=== PATIENT | male | born 1950 | race Caucasian/White ===

== ENCOUNTER 2017-09-10 10:19 | Outpatient (CLI) | payer MEDICARE | END 2017-09-10 10:20 | disposition home or self-care (01) | LOC: BICMRI 10:19 | PROVIDERS: ATTEND Orthopaedic Surgery | DX: M75.101 Unspecified rotator cuff tear or rupture of right shoulder, not specified as traumatic (principal); S43.401A Unspecified sprain of right shoulder joint, initial encounter; M19.011 Primary osteoarthritis, right shoulder ==

== ENCOUNTER 2017-09-17 13:51 | Outpatient (CLI) | payer MEDICARE, OTHER ==
[2017-09-17 15:27] LABS: #Basophils 0.1 thou/uL (0.0-0.2); #Eosinphils 0.2 thou/uL (0.0-0.7); #Lymphocytes 2.4 thou/uL (1.20-3.40); #Monocytes 0.8 thou/uL (0.11-0.59); #Neutrophils 3.6 thou/uL (1.40-6.50); %Basophils 1.3 % (0.0-1.0); %Eosinophils 2.5 % (0.0-10.0); %Monocytes 11.2 % (0.0-10.0); %Neutrophils 51.1 % (42.0-75.0); Hemoglobin 12.9 g/dL (14.0-18.0); Mean Corpuscular HGB CONC 33.5 g/dL (32.0-36.0); Mean Corpuscular Hemoglobin 31.5 pg (27.0-31.0); Mean Corpuscular Volume 93.9 fl (80.0-94.0); Mean Platelet Volume 7.6 fL (7.4-10.4); Platelet Count 218 thou/uL (130-400); RBC Distribution Width 11.7 % (11.5-14.5); Red Blood Cell (RBC) Count 4.08 mill/uL (4.70-6.10)
[2017-09-17 15:47] LABS: Anion Gap 8 mmol/L (10-20); BUN (Urea Nitrogen) 15 mg/dL (8.4-25.7); Calc. Creatinine Clearance 0 mL/min (70-130); Calcium 9.2 mg/dL (7.8-10.44); Carbon Dioxide 30 mmol/L (23-31); Chloride 104 mmol/L (98-107); Estimated GFR-MDRD 84; Glucose 99 mg/dL (80-115); Potassium 4.1 mmol/L (3.5-5.1); Sodium 138 mmol/L (136-145)
== END 2017-09-17 13:52 | disposition home or self-care (01) ==
LOC: LABBT 13:51
PROVIDERS: ATTEND Orthopaedic Surgery
DX: Z01.818 Encounter for other preprocedural examination (principal); M75.101 Unspecified rotator cuff tear or rupture of right shoulder, not specified as traumatic
CPT/HCPCS: 80048; 85025; 93005; 93010

== ENCOUNTER 2017-09-22 07:59 | Day surgery (SDC) | payer MEDICARE, OTHER ==
[2017-09-17 14:22] VITALS: BMI 34.4
[~2017-09-22 07:59] MED LIST: Dexamethasone 20 MG/5 ML VIAL ONE; Glycopyrrolate 0.2 MG/ML 5 ML SYRINGE ONE; Ketorolac Tromethamine 30 MG/ML VIAL ONE; Lidocaine 1% PF 5 ML VIAL ONE; Ondansetron HCl/PF 4 MG/2 ML Vial ONE; PROPOFOL 200 MG/20 ML VIAL ONE
[2017-09-22] MEDS ORDERED: CEFAZOLIN/Water 2 GM/20 ML SYRINGE ONE (08:08)
[2017-09-22] MEDS ORDERED: Fentanyl 100 MCG/2 ML VIAL ONE ×3 (08:34→12:49)
[2017-09-22] MEDS ORDERED: Ropivacaine 0.2% HCl/PF 20 ML ONE (08:42)
[2017-09-22] MEDS ORDERED: Midazolam HCl 2 mg/2 ml Vial ONE ×2 (08:42→08:57)
[2017-09-22] MEDS ORDERED: Ondansetron HCl/PF 4 MG/2 ML Vial IVP PRN (09:22)
[2017-09-22] MEDS ORDERED: HYDROcodone/Acetaminophen 5/325 mg Tablet PO PRN ×2 (09:22)
[2017-09-22] MEDS ORDERED: Fentanyl 100 MCG/2 ML VIAL IV PRN (09:22)
[2017-09-22] MEDS ORDERED: traMADol HCl 50 MG TAB PO PRN ×2 (09:22)
[2017-09-22] MEDS ORDERED: Ropivacaine HCl/PF 1,100 MG in Sodium Chloride 0.9% 440 ML NERVE BLCK SCH (09:22)
[2017-09-22] MEDS ORDERED: Promethazine HCl 25 MG/ML VIAL IM PRN (09:22)
[2017-09-22] MEDS ORDERED: Zolpidem Tartrate 5 MG TAB PO PRN (09:22)
[2017-09-22] MEDS ORDERED: Ketorolac Tromethamine 30 MG/ML VIAL IVP PRN (09:22)
--- NOTE | 2017-09-22 14:09 | OP ---
PREOPERATIVE DIAGNOSIS: Rotator cuff tear, right shoulder. POSTOPERATIVE DIAGNOSIS: Rotator cuff tear, right shoulder. SURGICAL PROCEDURE: Right arthroscopic rotator cuff repair using 2 Arthrex Corkscrew suture anchors and 2 SwiveLocks. Subacromial decompression. DESCRIPTION OF PROCEDURE: The patient was placed in left lateral decubitus position. Right arm was prepped and draped in the usual sterile fashion. He received Ancef 2 grams preoperatively. Scope wa s placed in the glenohumeral joint. There was no significant glenohumeral arthritis. There is a ful l-thickness rotator cuff tear evident. Scope was placed in subacromial bursa. CA ligament was taken down and bursectomy was performed. Anterior and inferior acromioplasty was performed with a hallie. Rotator cuff tear was easily identified. I freshened the greater tuberosity with a hallie. I freshene d up the rotator cuff tear with a shaver. Two Corkscrew suture anchors were placed in the greater tu berosity. Sutures were passed through the rotator cuff and tied with a good watertight repair and th en reinforced laterally with a SwiveLock device. Four sutures through each SwiveLock device. Should er was then drained. Portals closed with nylon suture and sterile dressings applied. The patient wa s placed in a sling. There were no complications.
[2017-09-22] MEDS ORDERED: Ropivacaine 0.2% HCl/PF (40 MG/20 ML VIAL) ONE (15:28)
[2017-09-22] MEDS ORDERED: Ropivacaine 0.5% HCl/PF (150 MG/30 ML VIAL) ONE (15:28)
== END 2017-09-22 14:25 | disposition home or self-care (01) ==
LOC: SDC 07:59
PROVIDERS: ATTEND Orthopaedic Surgery
PROC: 0LQ14ZZ Repair Right Shoulder Tendon, Percutaneous Endoscopic Approach (ICD-10-PCS; principal; 2017-09-22)
PROC: 0RNJ4ZZ Release Right Shoulder Joint, Percutaneous Endoscopic Approach (ICD-10-PCS; 2017-09-22)
DX: M75.121 Complete rotator cuff tear or rupture of right shoulder, not specified as traumatic (principal); I10 Essential (primary) hypertension; M10.9 Gout, unspecified; Z79.82 Long term (current) use of aspirin; Z79.899 Other long term (current) drug therapy; Z98.890 Other specified postprocedural states
CPT/HCPCS: 29826; 29827; 96374; 97139; C1713; G8984; G8985; G8986; J1100; J1885; J2001; J2250; J2405; J2704; J2795; J3010; J7050

== ENCOUNTER 2018-06-25 08:17 | Outpatient (CLI) | payer MEDICARE, OTHER ==
--- NOTE | 2018-06-25 09:42 | RAD ---
1 VIEW ABDOMEN: Date: 06/25/18 HISTORY: Renal calculi. COMPARISON: None. FINDINGS: Nonspecific bowel gas pattern. Multiple punctate densities project over the left and right renal silh ouette. The possibility of bilateral renal calculi could not be excluded. The largest possible calcul us projecting over the left renal silhouette measures 6.0 mm. Possible calculus projecting over the r ight renal silhouette measures 0.5 cm. Calcifications in the left and right hemipelvis are presumed to be phleboliths. IMPRESSION: Possible bilateral renal calculi. POS: EDYTA
== END 2018-06-25 08:18 | disposition home or self-care (01) ==
LOC: RAD 08:17
PROVIDERS: ATTEND Urology
DX: N20.0 Calculus of kidney (principal)
CPT/HCPCS: 74018

== ENCOUNTER 2019-04-22 14:52 | Outpatient (CLI) | payer MEDICARE, OTHER ==
--- NOTE | 2019-04-22 15:21 | RAD ---
ABDOMEN ONE VIEW: HISTORY: Bilateral kidney stones. COMPARISON: 06/25/2018 FINDINGS: Multiple left renal calculi and several small right renal calculi. These are better seen than on the prior study of 06/25/2018, in part because of less fecal material overlying and obscuring them. IMPRESSION: Multiple nonobstructing bilateral renal calculi. POS: TPC
== END 2019-04-22 14:53 | disposition home or self-care (01) ==
LOC: RAD 14:52
PROVIDERS: ATTEND Urology
DX: N20.0 Calculus of kidney (principal)
CPT/HCPCS: 74018

== ENCOUNTER 2020-02-19 12:07 | Emergency (ER) | payer MEDICARE, OTHER ==
[2020-02-19 12:36] LABS: #Lymphocytes 1.5 thou/uL (1.20-3.40); #Monocytes 1.4 thou/uL (0.11-0.59); #Neutrophils 7.6 thou/uL (1.40-6.50); %Basophils 0.2 % (0.0-1.0); %Eosinophils 0.3 % (0.0-10.0); %Lymphocytes 14.4 % (21.0-51.0); %Monocytes 12.8 % (0.0-10.0); %Neutrophils 72.3 % (42.0-75.0); Hemoglobin 13.3 g/dL (14.0-18.0); Mean Corpuscular HGB CONC 34.4 g/dL (32.0-36.0); Mean Corpuscular Hemoglobin 31.3 pg (27.0-31.0); Mean Corpuscular Volume 90.9 fL (78.0-98.0); Mean Platelet Volume 7.1 fL (7.4-10.4); Platelet Count 204 thou/uL (130-400); RBC Distribution Width 11.9 % (11.5-14.5); Red Blood Cell (RBC) Count 4.26 mill/uL (4.70-6.10); White Blood Cell (WBC) Count 10.5 thou/uL (4.8-10.8)
[2020-02-19 12:58] LABS: ALT (SGPT) 21 U/L (8-55); AST (SGOT) 18 U/L (5-34); Alkaline Phosphatase 88 U/L (40-110); Anion Gap 13 mmol/L (10-20); BUN (Urea Nitrogen) 18 mg/dL (8.4-25.7); Bilirubin, Total 0.6 mg/dL (0.2-1.2); Calc. Creatinine Clearance 0 mL/min (70-130); Calcium 9.2 mg/dL (7.8-10.44); Carbon Dioxide 26 mmol/L (23-31); Chloride 101 mmol/L (98-107); Estimated GFR-MDRD 42; Globulin 3.2 g/dL (2.4-3.5); Glucose 97 mg/dL (80-115); Potassium 4.3 mmol/L (3.5-5.1); Protein, Total 7.2 g/dL (5.8-8.1); Sodium 136 mmol/L (136-145)
[2020-02-19 12:59] LABS: Bilirubin Negative (Negative); Blood, Urine Trace (Negative); Clarity Clear (Clear); Glucose, Urine (Dipstick) Normal (Negative); Ketone, Urine Negative (Negative); Leukocyte Negative Leu/uL (Negative); Nitrite Negative (Negative); Protein, Urine (Dipstick) Negative (Neg-Trace); RBC/HPF 0-3 HPF (0-3); Specific Gravity, Urine 1.018 (1.002-1.036); Squamous Epithelial 0-3 HPF (0-3); Urobilinogen Normal mg/dL (Less than 2); WBC/HPF 0-3 HPF (0-3)
[2020-02-19 13:00] LABS: Bacteria/HPF Rare-Few HPF (None Seen)
[2020-02-19] MEDS ORDERED: Ondansetron PF 4 MG/2 ML Vial ONE (14:02)
[2020-02-19] MEDS ORDERED: Ketorolac Tromethamine 30 MG/ML VIAL ONE (14:02)
--- NOTE | 2020-02-19 14:52 | CT ---
ABDOMEN CT WITHOUT CONTRAST PELVIC CT WITHOUT CONTRAST; HISTORY: Left flank pain. COMPARISON: 11/02/2018 FINDINGS: Abdomen CT: Lung bases:Clear Heart size: Normal heart size Aorta: Minimal atherosclerosis. No periaortic fat stranding Solid organs: Limited evaluation by the lack of IV contrast. Grossly no solid organ abnormality. Lymph nodes: No gastrohepatic, retrocrural or periportal lymphadenopathy Gallbladder: No acute abnormality Mesentery: No mass, lymphadenopathy, free air or free fluid Kidneys: Bilateral nonobstructing intrarenal calculi. Largest calculi in the right renal pelvis measu res 0.6 cm. No evidence of right sided uropathy. Largest calculus in the left renal pelvis measures 0.4 cm. There is mild dilatation of the left intrarenal collecting system. There is a solitary calcul us in the left ureter, measuring 0.5 cm. Calculus is noted at the superior aspect of the L5 vertebral body. Distal to this calculus, the left ureter is compressed. Redemonstration of exophytic hypodense focus along the superior margin of the right kidney measuring 2.2 x 2.3 cm. There is nonspecific fluid anterior to the left renal space, tracking along the left and the pelvis. Alimentary canal: Limited evaluation by the lack of oral contrast. No bowel obstruction. Normal ileoc ecal junction. Diverticulosis. No evidence of diverticulitis. Normal caliber appendix. CT PELVIS: No mass, lymphadenopathy. Trace amount of free fluid in the left hemipelvis. Urinary bladder: Unremarkable. Osseous structures: Multilevel degenerative changes of the lumbar spine. Grade 1 anterolisthesis of L 5 upon S1 with associated spondylolysis. IMPRESSION: 1. Mild left-sided obstructive uropathy secondary solitary calculus in the left ureter at the level o f the L5 vertebral body. 2. Bilateral nonobstructing calculi. Transcribed Date/Time: 02/19/2020 2:57 PM
== END 2020-02-19 16:00 | disposition home or self-care (01) ==
LOC: ERS 12:07
DX: N20.2 Calculus of kidney with calculus of ureter (principal); I10 Essential (primary) hypertension; E78.5 Hyperlipidemia, unspecified; Z79.899 Other long term (current) drug therapy
CPT/HCPCS: 36415; 74176; 80053; 81003; 81015; 85025; 96374; 96375; J1885; J2405

== ENCOUNTER 2020-02-20 11:33 | Outpatient (CLI) | payer MEDICARE, OTHER ==
[2020-02-21 08:34] LABS: SARS-CoV-2 NAA Rapid Test Not Detected (NotDetected)
== END 2020-02-20 11:34 | disposition home or self-care (01) ==
LOC: LABBT 11:33
PROVIDERS: ATTEND Urology
DX: N20.0 Calculus of kidney (principal); Z20.828 Contact with and (suspected) exposure to other viral communicable diseases
CPT/HCPCS: 87635; U0002; U0003

== ENCOUNTER 2020-02-21 10:43 | Day surgery (SDC) | payer MEDICARE, OTHER ==
[2020-02-20 14:18] VITALS: BMI 35.9
[~2020-02-21 10:43] MED LIST changes: -Glycopyrrolate 0.2 MG/ML 5 ML SYRINGE ONE; -Ketorolac Tromethamine 30 MG/ML VIAL ONE; -Ondansetron HCl/PF 4 MG/2 ML Vial ONE; +Ondansetron PF 4 MG/2 ML Vial ONE; +PHENYLEPHRINE-NS 100 MCG/ML 10 ML SYRINGE ONE; +Rocuronium Bromide 10 MG/ML (10ML VIAL) ONE
[2020-02-21] MEDS ORDERED: Fentanyl 100 MCG/2 ML VIAL ONE ×4 (13:00→15:47)
[2020-02-21] MEDS ORDERED: Iothalamate Meglumine 60% 50 ML VIAL FS ONE (13:49)
[2020-02-21] MEDS ORDERED: SUGAMMADEX SODIUM 200 MG/2 ML VIAL ONE (13:55)
[2020-02-21] MEDS ORDERED: Levofloxacin 500 mg/D5W 100 ml Premix Bag ONE (14:02)
--- NOTE | 2020-02-21 15:10 | RAD ---
EXAM: Retrograde IVP HISTORY: Kidney stones COMPARISON: CT abdomen/pelvis 02/19/2020 FINDINGS/IMPRESSION: A single limited intraoperative fluoroscopic view of the retrograde IVP were sub mitted for interpretation. There is contrast within both renal collecting systems. Bilateral double-J ureteral stents appear in good position.
[2020-02-21] MEDS ORDERED: Ketorolac Tromethamine 30 MG/ML VIAL ONE (15:34)
[2020-02-21] MEDS ORDERED: Oxybutynin 5 MG TAB ONE (15:35)
[2020-02-21] MEDS ORDERED: HYDROcodone/Acetaminophen 5/325 mg Tablet ONE (15:59)
--- NOTE | 2020-02-21 21:24 | OP ---
DATE OF PROCEDURE: 02/21/2020 PREOPERATIVE DIAGNOSES: Left ureteral stone, right and left renal stones. POSTOPERATIVE DIAGNOSES: Left ureteral stone, right and left renal stones. PROCEDURES PERFORMED: Left ureteroscopy with laser lithotripsy, basket extraction of ureteral stone, left ureteroscopy with laser lithotripsy of renal stones, right ureteroscopy with laser lithotripsy of renal stones, bilateral 6 x 26 double-J ureteral stent without string placement, retrograde pyelogram with intraoperative interpretation of radiologic imaging. ANESTHESIA: General. COMPLICATIONS: None. ESTIMATED BLOOD LOSS: Minimal. SPECIMEN: Stone fragments. DESCRIPTION OF PROCEDURE: After informed consent, the patient was taken to the operating room, transferred to the table on his own power. Anesthesia was established. A time-out was performed showing the correct patient, site, and procedure. Preoperative antibiotics were administered. He was prepped and draped in the lithotomy position. The semi-rigid ureteroscope was advanced through the urethra into the bladder. The left ureteral orifice was cannulated with a wire, which was passed up to the level of the renal pelvis under fluoroscopic guidance. The scope was withdrawn and reinserted alongside the wire into the distal ureter, where the stone was quickly encountered. The stone was treated with a 273 micron laser fiber, fragmenting it into two pieces. The pieces were then removed with a Nitinol basket and passed off the specimen. The scope was then passed up to the renal pelvis without identifying any further stone fragments or abnormalities. A retrograde pyelogram was performed at this point showing hydronephrosis and hydroureter with no further filling defects. The scope was withdrawn, and an access sheath placed over the wire into the proximal ureter under fluoroscopic guidance. The flexible ureteroscope was passed through the access sheath into the renal pelvis. The 200 micron laser fiber was used to dust several small stones that were attached to the calices. The renal pelvis and collecting system were then re-examined, noting no clinically significant stone fragments remaining. The renal pelvis was filled with contrast and the scope withdrawn along with the access sheath, leaving a wire in place. A 6 x 26 double-J ureteral stent was passed over the wire with a curl in the kidney and curl in the bladder under fluoroscopic guidance. The semi-rigid ureteroscope was advanced through the urethra once again and the right ureter cannulated with a wire, which was passed up to the level of the renal pelvis under fluoroscopic guidance. An access sheath was passed over this into the proximal ureter again under fluoroscopic guidance. A flexible ureteroscope was passed through the access sheath into the renal pelvis and the 273 micron laser fiber was used to dust all of the stones found throughout the collecting system into small pieces. The collecting system was then re-examined noting no further clinically significant stone fragments. The scope and access sheath were then withdrawn, leaving a wire in place after filling the pelvis with contrast. A 6 x 26 double-J ureteral stent was passed over the wire with a curl in the kidney and curl in the bladder under fluoroscopic guidance. The bladder was then drained. The patient was awoken from anesthesia, transferred back to his hospital bed and taken to PACU in stable condition, where he will discharge home upon recovery. Job ID: [id number]
== END 2020-02-21 17:38 | disposition home or self-care (01) ==
LOC: SDC 10:43
PROVIDERS: ATTEND Urology
PROC: 0TC48ZZ Extirpation of Matter from Left Kidney Pelvis, Via Natural or Artificial Opening Endoscopic (ICD-10-PCS; principal; 2020-02-21)
PROC: 0TC78ZZ Extirpation of Matter from Left Ureter, Via Natural or Artificial Opening Endoscopic (ICD-10-PCS; 2020-02-21)
PROC: 0TC38ZZ Extirpation of Matter from Right Kidney Pelvis, Via Natural or Artificial Opening Endoscopic (ICD-10-PCS; 2020-02-21)
PROC: 0T778DZ Dilation of Left Ureter with Intraluminal Device, Via Natural or Artificial Opening Endoscopic (ICD-10-PCS; 2020-02-21)
DX: N13.2 Hydronephrosis with renal and ureteral calculous obstruction (principal); N17.9 Acute kidney failure, unspecified; I10 Essential (primary) hypertension; K21.9 Gastro-esophageal reflux disease without esophagitis; M10.9 Gout, unspecified; Z79.899 Other long term (current) drug therapy
CPT/HCPCS: 74420; 88300; J1100; J1885; J1956; J2405; J2704; J3010

== ENCOUNTER 2020-04-17 15:12 | Outpatient (CLI) | payer MEDICARE, OTHER ==
--- NOTE | 2020-04-17 15:50 | ULT ---
Renal sonogram HISTORY: Kidney stones. COMPARISON: CT 02/19/2020. FINDINGS: Right kidney is 11.5 cm length with diffuse thinning of the cortex. A 2.1 cm exophytic cyst projects laterally from the superior pole. Shadowing echogenicity at the inferior pole is consistent with renal calculi. No hydronephrosis. Left kidney measures up to 13.8 cm with mild diffuse renal cortical thinning. Central echogenicities consistent with nonobstructing calculi. No hydronephrosis. Urinary bladder is unremarkable. IMPRESSION : Nonobstructing bilateral renal calculi. Right renal cyst.
== END 2020-04-17 15:13 | disposition home or self-care (01) ==
LOC: BICULT 15:12
PROVIDERS: ATTEND Urology
DX: N20.2 Calculus of kidney with calculus of ureter (principal); N28.1 Cyst of kidney, acquired
CPT/HCPCS: 76770

== ENCOUNTER 2020-12-11 10:25 | Outpatient (CLI) | payer MEDICARE, OTHER | END 2020-12-11 10:26 | disposition home or self-care (01) | LOC: TBSIIMAG 10:25 | PROVIDERS: ATTEND Anesthesiology Pain Medicine | DX: M47.26 Other spondylosis with radiculopathy, lumbar region (principal) | CPT/HCPCS: 72148 ==

== ENCOUNTER 2021-03-11 09:20 | Outpatient (CLI) | payer MEDICARE, OTHER ==
[2021-03-11 11:04] LABS: Hemoglobin 12.8 g/dL (13.5-17.5); Mean Corpuscular HGB CONC 31.9 g/dL (32.0-36.0); Mean Corpuscular Hemoglobin 29.8 pg (27.0-33.0); Mean Corpuscular Volume 93.3 fl (81.2-95.1); Mean Platelet Volume 10.2 fl (7.4-10.4); Platelet Count 216 10x3/uL (150-450); RBC Distribution Width 13.7 % (11.5-14.5); White Blood Cell (WBC) Count 6.9 10x3/uL (3.5-10.5)
[2021-03-11 11:11] LABS: INR-International Normal Ratio 1.1; Prothrombin Time 11.9 sec (9.5-12.1)
[2021-03-11 11:14] LABS: Anion Gap 13 mmol/L (10-20); BUN (Urea Nitrogen) 16 mg/dL (8.4-25.7); Calc. Creatinine Clearance 0 mL/min (70-130); Calcium 9.5 mg/dL (7.8-10.44); Carbon Dioxide 27 mmol/L (23-31); Chloride 101 mmol/L (98-107); Glucose 91 mg/dL (80-115); Potassium 4.4 mmol/L (3.5-5.1); Sodium 137 mmol/L (136-145)
[2021-03-11 20:26] LABS: SARS-CoV-2 PCR by NAA Not Detected (NotDetected)
== END 2021-03-11 09:21 | disposition home or self-care (01) ==
LOC: LABBT 09:20
PROVIDERS: ATTEND Internal Medicine Cardiovascular Disease
DX: Z01.812 Encounter for preprocedural laboratory examination (principal); I47.1 Supraventricular tachycardia; Z20.822 Contact with and (suspected) exposure to COVID-19
CPT/HCPCS: 80048; 85027; 85610; U0003; U0005

== ENCOUNTER 2021-03-14 05:40 | Day surgery (SDC) | payer MEDICARE, OTHER ==
[2021-03-13 11:10] VITALS: BMI 35.2
[2021-03-14] MEDS ORDERED: Heparin 0 ML ONE (06:35)
[2021-03-14] MEDS ORDERED: Heparin 25,000 units/D5W 0 ML ONE (06:35)
[2021-03-14] MEDS ORDERED: Heparin 10,000 UNITS/ 10 ML VIAL ONE (06:35)
[2021-03-14] MEDS ORDERED: Propofol 1,000 MG/100 ML VIAL IV ONE (06:40)
[2021-03-14] MEDS ORDERED: Lidocaine 1% (PF) 30 ML VIAL ONE (06:42)
[2021-03-14] MEDS ORDERED: Isoproterenol 0.2 MG/1 ML AMP ONE (06:43)
[2021-03-14] MEDS ORDERED: Dexmedetomidine 200 MCG/2 ML VIAL ONE (07:01)
[2021-03-14] MEDS ORDERED: Rocuronium Bromide 10 MG/ML (10ML VIAL) ONE (07:10)
[2021-03-14] MEDS ORDERED: Dexamethasone 20 MG/5 ML VIAL ONE (07:10)
[2021-03-14] MEDS ORDERED: Lidocaine 1% PF 5 ML VIAL ONE ×2 (07:10)
[2021-03-14] MEDS ORDERED: PROPOFOL 200 MG/20 ML VIAL ONE (07:10)
[2021-03-14] MEDS ORDERED: ePHEDrine 50 MG/ML VIAL ONE (07:10)
[2021-03-14] MEDS ORDERED: Ondansetron PF 4 MG/2 ML Vial ONE (07:10)
[2021-03-14] MEDS ORDERED: SUGAMMADEX SODIUM 200 MG/2 ML VIAL ONE (08:57)
== END 2021-03-14 13:57 | disposition home or self-care (01) ==
LOC: SDC 05:40
PROVIDERS: ATTEND Internal Medicine Cardiovascular Disease
PROC: 02583ZZ Destruction of Conduction Mechanism, Percutaneous Approach (ICD-10-PCS; principal; 2021-03-14)
PROC: 02K83ZZ Map Conduction Mechanism, Percutaneous Approach (ICD-10-PCS; 2021-03-14)
PROC: 4A023FZ Measurement of Cardiac Rhythm, Percutaneous Approach (ICD-10-PCS; 2021-03-14)
PROC: 4A0234Z Measurement of Cardiac Electrical Activity, Percutaneous Approach (ICD-10-PCS; 2021-03-14)
DX: I47.1 Supraventricular tachycardia (principal); I48.3 Typical atrial flutter; M10.9 Gout, unspecified; I10 Essential (primary) hypertension; E78.5 Hyperlipidemia, unspecified; K21.9 Gastro-esophageal reflux disease without esophagitis; Z79.01 Long term (current) use of anticoagulants; Z79.899 Other long term (current) drug therapy
CPT/HCPCS: 93005; 93613; 93621; 93653; C1730; C1894; C2630; J1100; J1644; J2001; J2405; J2704; J3490

== ENCOUNTER 2021-09-27 09:35 | Outpatient (CLI) | payer MEDICARE, OTHER ==
[2021-09-27] MEDS ORDERED: ISOVUE-370 76% 1 ML ONE (16:02)
== END 2021-09-27 09:36 | disposition home or self-care (01) ==
LOC: BICCT 09:35
PROVIDERS: ATTEND Physician Assistant Medical
DX: R10.30 Lower abdominal pain, unspecified (principal); K62.5 Hemorrhage of anus and rectum; K59.00 Constipation, unspecified; K57.30 Diverticulosis of large intestine without perforation or abscess without bleeding; N28.1 Cyst of kidney, acquired
CPT/HCPCS: 74177; 82565

== ENCOUNTER 2022-06-20 12:22 | Outpatient (CLI) | payer MEDICARE, BC | END 2022-06-20 12:23 | disposition home or self-care (01) | LOC: TBSIIMAG 12:22 | PROVIDERS: ATTEND Nurse Practitioner Family | DX: M48.062 Spinal stenosis, lumbar region with neurogenic claudication (principal); M43.17 Spondylolisthesis, lumbosacral region; M51.36 Other intervertebral disc degeneration, lumbar region; M47.816 Spondylosis without myelopathy or radiculopathy, lumbar region | CPT/HCPCS: 72148 ==

== ENCOUNTER 2022-06-25 15:03 | Outpatient (CLI) | payer MEDICARE, OTHER | END 2022-06-25 15:04 | disposition home or self-care (01) | LOC: TBSIIMAG 15:03 | PROVIDERS: ATTEND Anesthesiology Pain Medicine | DX: M43.06 Spondylolysis, lumbar region (principal); M47.816 Spondylosis without myelopathy or radiculopathy, lumbar region | CPT/HCPCS: 72120 ==

== ENCOUNTER 2023-01-15 06:50 | Observation (INO) | payer MEDICARE, BC ==
[2023-01-14 13:23] VITALS: BMI 34.4
[2023-01-15 07:55] LABS: #Eosinphils 0.2 thou/uL (0.0-0.7); #Monocytes 0.7 thou/uL (0.11-0.59); #Neutrophils 3.7 thou/uL (1.40-6.50); %Basophils 0.4 % (0.0-1.0); %Eosinophils 2.6 % (0.0-10.0); %Lymphocytes 35.1 % (21.0-51.0); %Monocytes 9.8 % (0.0-10.0); %Neutrophils 51.8 % (42.0-75.0); Hematocrit 41.3 % (42.0-52.0); Hemoglobin 13.1 g/dL (14.0-18.0); Mean Corpuscular HGB CONC 31.7 g/dL (32.0-36.0); Mean Corpuscular Hemoglobin 29.8 pg (27.0-31.0); Mean Corpuscular Volume 93.9 fl (78.0-98.0); Mean Platelet Volume 9.8 fL (7.4-10.4); Platelet Count 216 10x3/uL (130-400); RBC Distribution Width 13.5 % (11.5-14.5); White Blood Cell (WBC) Count 7.2 10x3/uL (4.8-10.8)
[2023-01-15 08:05] LABS: PTT 30.4 sec (22.9-36.1)
[2023-01-15 08:06] LABS: INR-International Normal Ratio 0.9; Prothrombin Time 12.9 sec (12.0-14.7)
[2023-01-15 08:18] LABS: Anion Gap 11 mmol/L (10-20); BUN (Urea Nitrogen) 14 mg/dL (8.4-25.7); Calc. Creatinine Clearance 114 mL/min (70-130); Carbon Dioxide 30 mmol/L (23-31); Chloride 103 mmol/L (98-107); Estimated GFR 88; Glucose 97 mg/dL (80-115); Potassium 4.4 mmol/L (3.5-5.1); Sodium 140 mmol/L (136-145)
[2023-01-15] MEDS ORDERED: Vancomycin 1 GM VIAL ONE (09:48)
[2023-01-15] MEDS ORDERED: Thrombin 5000 UNITS/5 ML VIAL ONE (09:48)
[2023-01-15] MEDS ORDERED: Fentanyl 250 MCG/5 ML VIAL ONE (09:53)
[2023-01-15] MEDS ORDERED: CEFAZOLIN 2 GM VIAL ONE (09:59)
[2023-01-15] MEDS ORDERED: Sodium Chloride 0.9% 100 ML ONE (09:59)
[2023-01-15] MEDS ORDERED: Famotidine/PF 20 mg/2ml Vial ONE (10:05)
[2023-01-15] MEDS ORDERED: Ketamine 50 MG/ML (10ML VIAL) ONE (10:05)
[2023-01-15] MEDS ORDERED: Rocuronium Bromide 10 MG/ML (10ML VIAL) ONE (10:09)
[2023-01-15] MEDS ORDERED: Calcium Chloride 1 GM/10 ML Abboject SYRINGE ONE (10:09)
[2023-01-15] MEDS ORDERED: Dexamethasone 20 MG/5 ML VIAL ONE (10:09)
[2023-01-15] MEDS ORDERED: NEOSTIGMINE 3 MG/3 ML SYR 3 MG/3 ML SYRINGE ONE (10:09)
[2023-01-15] MEDS ORDERED: PROPOFOL 200 MG/20 ML VIAL ONE (10:09)
[2023-01-15] MEDS ORDERED: Lidocaine 1% PF 5 ML VIAL ONE (10:09)
[2023-01-15] MEDS ORDERED: Glycopyrrolate 0.2 MG/ML 5 ML SYRINGE ONE (10:09)
[2023-01-15] MEDS ORDERED: Ondansetron PF 4 MG/2 ML Vial ONE (10:09)
[2023-01-15] MEDS ORDERED: PHENYLEPHRINE-NS 100 MCG/ML 10 ML SYRINGE ONE (10:09)
[2023-01-15] MEDS ORDERED: Metoclopramide HCl 10 MG/2 ML VIAL ONE (10:09)
[2023-01-15] MEDS ORDERED: ePHEDrine Sulfate 50 MG/10 ML VIAL ONE (10:09)
[2023-01-15] MEDS ORDERED: MINERAL OIL/WHITE PETROLATUM 3.5 GM TUBE ONE (10:23)
[2023-01-15] MEDS ORDERED: Albumin 5% 500 ML ONE (12:04)
[2023-01-15] MEDS ORDERED: PACU-Morphine 4MG/ML VIAL SLOW IVP PRN (12:56)
[2023-01-15] MEDS ORDERED: Ondansetron HCl/PF 4 MG/2 ML Vial IVP PRN (12:56)
[2023-01-15] MEDS ORDERED: Morphine Sulfate 2 MG/ML SYRINGE SLOW IVP PRN (12:56)
[2023-01-15] MEDS ORDERED: Promethazine HCl 25 MG/ML VIAL IM PRN (12:56)
[2023-01-15] MEDS ORDERED: HYDROmorphone 2 MG/ML VIAL SLOW IVP PRN (12:56)
[2023-01-15] MEDS ORDERED: Ondansetron PF 4 MG/2 ML Vial IVP PRN (13:25)
[2023-01-15] MEDS ORDERED: diphenhydrAMINE 25 MG CAP PO PRN (13:25)
[2023-01-15] MEDS ORDERED: Acetaminophen/Codeine 30-300mg Tablet PO PRN (13:25)
[2023-01-15] MEDS ORDERED: traMADol HCl 50 MG TAB PO PRN (13:25)
[2023-01-15] MEDS ORDERED: Milk Of Magnesia 30 ML UDCUP PO PRN (13:25)
[2023-01-15] MEDS ORDERED: Morphine 2 MG/ML VIAL SLOW IVP PRN (13:25)
[2023-01-15] MEDS ORDERED: Acetaminophen 325 MG TAB PO PRN (13:25)
[2023-01-15] MEDS ORDERED: Promethazine HCl 25 MG/ML VIAL IVPB PRN (13:25)
[2023-01-15] MEDS ORDERED: hydrALAZINE 20 MG/ML VIAL SLOW IVP PRN (13:27)
[2023-01-15] MEDS ORDERED: Diazepam 5 MG TAB PO PRN (13:27)
[2023-01-15] MEDS ORDERED: tiZANidine HCl 4 MG TAB PO PRN (13:27)
[2023-01-15] MEDS ORDERED: HYDROmorphone 0.5 MG/0.5 ML SYRINGE ONE (14:03)
[2023-01-15] MEDS ORDERED: fentaNYL 50 mcg/mL 1 mL Vial ONE ×4 (14:24→16:10)
[2023-01-15] MEDS ORDERED: Promethazine HCl 12.5 MG in Sodium Chloride 0.9% 50 ML IVPB PRN (14:47)
[2023-01-15] MEDS: Sodium Chloride 0.9% 1,000 ML IV SCH (17:25)
[2023-01-15] MEDS: CEFAZOLIN 2 GM in Sodium Chloride 0.9% 100 ML IVPB SCH (17:25)
[2023-01-15] MEDS: HYDROcodone/Acetaminophen 7.5/325 mg Tablet PO PRN ×2 (18:36→22:46)
[2023-01-15] MEDS ORDERED: Losartan 25 MG TAB PO SCH (21:00)
[2023-01-15] MEDS ORDERED: Atorvastatin Calcium 20 MG TAB PO SCH (21:00)
[2023-01-15] MEDS ORDERED: Multivitamin W/ Minerals 1 TAB PO SCH (21:00)
[2023-01-15] MEDS ORDERED: dilTIAZem CD 180 MG CAP PO SCH (21:00)
[2023-01-15] MEDS ORDERED: Cholecalciferol 1,000 UNITS (25 MCG) TAB PO SCH (21:00)
[2023-01-15] MEDS ORDERED: Allopurinol 100 MG TAB PO SCH (21:00)
[2023-01-15] MEDS ORDERED: Montelukast Sodium 10 mg Tablet PO SCH (21:00)
[2023-01-16] MEDS: CEFAZOLIN 2 GM in Sodium Chloride 0.9% 100 ML IVPB SCH (02:23)
[2023-01-16] MEDS: Sodium Chloride 0.9% 1,000 ML IV SCH (05:35)
[2023-01-16] MEDS: HYDROcodone/Acetaminophen 7.5/325 mg Tablet PO PRN ×2 (08:24→12:48)
[2023-01-16 12:18] VITALS: BP 140/76; TEMP 97.9
== END 2023-01-16 12:55 | disposition home or self-care (01) ==
LOC: SDC 06:50 → SURG A 13:25
PROVIDERS: ADMIT Surgery; ATTEND Surgery
PROC: 00NY0ZZ Release Lumbar Spinal Cord, Open Approach (ICD-10-PCS; principal; 2023-01-15)
PROC: 01NB0ZZ Release Lumbar Nerve, Open Approach (ICD-10-PCS; 2023-01-15)
DX: M71.30 Other bursal cyst, unspecified site (principal); M48.062 Spinal stenosis, lumbar region with neurogenic claudication; M51.26 Other intervertebral disc displacement, lumbar region
CPT/HCPCS: 63030; 63047; 63048; 63056; 63267; 80048; 85025; 85610; 85730; 93005; A4314; C1713; J3010; P9045; 93010; J1100; J1170; J2405; J2704; J2765; J3370; J3490; S0028